=== PATIENT | male | born 1990 | race African-American/Black ===

== ENCOUNTER 2020-02-07 22:52 | Emergency (ER) | payer MEDICAID ==
[~2020-02-07] VITALS: Ht 188 cm; Wt 72.6 kg
[2020-02-07 22:54] VITALS: BP 82/57
--- NOTE | 2020-02-07 23:05 | NUR ---
PT AMBULATED TO BATHROOM, STEADY GAIT
--- NOTE | 2020-02-07 23:05 | NUR ---
PT IN BED 11.
--- NOTE | 2020-02-07 23:16 | NUR ---
29 Y/M PRESENTS TO ED FOR SOB , AND ITCHINESS X 1 DAY . NO RASH NOTED, SKIN INTACT. PT STATED " I FEEL DISCOMBOBULATED." PT REPORTS CHEST PAIN X 1 DAY, MIDSTERNAL AND NONRADIATING. PT REPORTS PAIN SHARP 5/10. PT DENIES ANY DRUG OR ALCOHOL USE. LUNGS CLEAR. A&O X 4. ABD SOFT NONDISTENDED. BS ACTIVE X 4. DENIES DYSURA, N/V/D OR FEVERS. PMH- DENEIS RX- DENEIS
[2020-02-07] MEDS ORDERED: NACL 0.9% 1,000 ML IV ONE (23:25)
[2020-02-07] MEDS ORDERED: ASPIRIN 81 MG TAB.CHEW PO ONE (23:25)
[2020-02-07] MEDS ORDERED: KETOROLAC 30 MG/ML VIAL IVP ONE (23:25)
--- NOTE | 2020-02-07 23:25 | NUR ---
DR. JUNIOR AT BEDSIDE.
--- NOTE | 2020-02-07 23:28 | NUR ---
XR AT BEDSIDE.
[2020-02-07 23:58] LABS: BASOPHILS # (AUTO) 0.1 K/uL (0.00-0.22); EOSINOPHILS # (AUTO) 0.4 K/uL (0-0.4); HEMATOCRIT 43.1 % (36-52); HEMOGLOBIN 14.3 g/dL (12.0-18.0); MEAN CORPUSCULAR HGB CONC 33 g/dL (33-37); MONOCYTES # (AUTO) 0.5 K/uL (0.8-1.0)
[2020-02-08 00:05] LABS: BASOPHILS % (AUTO) 0.8 % (0.0-2.0); EOSINOPHILS % (AUTO) 4.3 % (0.0-4.0); LYMPHOCYTES % (AUTO) 33.9 % (20.5-51.1); MEAN CORPUSCULAR HEMOGLOBIN 32 pg (27-31); MONOCYTES % (AUTO) 6.3 % (1.7-9.3); NEUTROPHILS # (AUTO) 4.8 K/uL (1.8-7.7); NEUTROPHILS % (AUTO) 54.7 % (42.2-75.2); PLATELET COUNT (AUTO) 183 K/uL (140-450); RED BLOOD CELL COUNT(AUTO) 4.49 MIL/uL (4.20-6.10); RED CELL DISTRIBUTION WIDTH 13.7 % (11.6-13.7); WHITE BLOOD COUNT (AUTO) 8.7 K/uL (4.8-10.8)
[2020-02-08 00:15] LABS: ALBUMIN 3.1 g/dL (3.4-5.0); ANION GAP 8.1 (8-16); CREATININE 1.3 mg/dL (0.6-1.3); POTASSIUM 4.1 mmol/L (3.5-5.1); TOTAL BILIRUBIN 0.2 mg/dL (0.0-1.0)
[2020-02-08 01:30] VITALS: BP 90/52
--- NOTE | 2020-02-08 01:30 | NUR ---
PT RESTING IN BED COMFORTABLY. VSS. CHEST PAIN AND SOB RELIEVED, PT DOES NOT APPEAR TO BE IN ANY DISTRESS. RESPIRATIONS ARE EVEN AND UNLABORED, O2 SAT 97% ON ROOM AIR. SIDE RAILS X1.
--- NOTE | 2020-02-08 02:00 | NUR ---
Patient discharged with v/s stable. Written and verbal after care instructions given and explained. Patient alert, oriented and verbalized understanding of instructions. Ambulatory with steady gait. All questions addressed prior to discharge. ID band removed. Patient advised to follow up with PMD. Rx of MOTRIN given. Patient educated on indication of medication including possible reaction and side effects. Opportunity to ask questions provided and answered. BUS PASS PROVIDED.
== END 2020-02-08 02:00 | disposition home or self-care (01) ==
LOC: MED 22:52
DX: R07.89 Other chest pain (principal); F12.90 Cannabis use, unspecified, uncomplicated
CPT/HCPCS: 36415; 71045; 80053; 84484; 85025; 93005; 96374; 99285; J1885; J7030; Q0092

== ENCOUNTER 2020-10-20 16:58 | Emergency (ER) | payer MEDICAID ==
[~2020-10-20] VITALS: Ht 188 cm; Wt 74.8 kg
--- NOTE | 2020-10-20 17:03 | NUR ---
BIBA TAKEN TO [facility]
[2020-10-20 17:05] VITALS: BP 113/73
--- NOTE | 2020-10-20 17:12 | NUR ---
29 y/o male biba als c/o left ankle pain s/p falling off skateboard today. +swelling to left ankle. Patient states 10/10 sharp constant pain. Unable to bear weight on leg. Given 50mcg fentanyl in rougt via IV. +cms. VSS medhx: denies
[2020-10-20] MEDS ORDERED: KETOROLAC 30 MG/ML VIAL IM ONE (17:15)
--- NOTE | 2020-10-20 17:46 | NUR ---
XRAY AT BEDSIDE
--- NOTE | 2020-10-20 18:23 | NUR ---
PT PROVIDED WITH TREVIN PER REQUEST
[2020-10-20 20:40] VITALS: BP 106/63
--- NOTE | 2020-10-23 11:46 | NUR ---
RESULTS RECEIVED FROM LAB. CHLAMYDIA AND GONORRHOEAE BOTH POSITIVE. COPY OF LAB PLACED IN INFECTION CONTROL MAILBOX.
== END 2020-10-20 20:40 | disposition home or self-care (01) ==
LOC: MED 16:58
DX: S93.602A Unspecified sprain of left foot, initial encounter (principal); N39.0 Urinary tract infection, site not specified; Z11.3 Encounter for screening for infections with a predominantly sexual mode of transmission; X58.XXXA Exposure to other specified factors, initial encounter; Y93.89 Activity, other specified; Y92.89 Other specified places as the place of occurrence of the external cause; Y99.8 Other external cause status
CPT/HCPCS: 29125; 36415; 73590; 73610; 73630; 81002; 87086; 87491; 96372; 99284; J1885